=== PATIENT | male | born 1975 | race Caucasian/White ===

== ENCOUNTER 2019-11-27 04:39 | Emergency (ER) | payer SELFPAY ==
[~2019-11-27] VITALS: Ht 190.5 cm; Wt 90.9 kg
[2019-11-27 04:46] VITALS: Ht 190.5 cm; Wt 90.9 kg
[2019-11-27] MEDS ORDERED: LAMICTAL150 M1 PO (04:48)
[2019-11-27] MEDS ORDERED: SEROQUEL200 MG PO (04:48)
[2019-11-27] MEDS ORDERED: STERAPRED DS 1010 MG PO (05:07)
--- NOTE | 2019-11-27 05:40 | NUR ---
DR. BENNETT NOTIFIED AND REVIEWED PT'S BEHAVIOR AND ASSESSMENT RESULTS. PT IS A LOW RISK PER DR. BENNETT. DR. BENNETT STATED TO GIVE RESOURCES TO PT AT TIME OF DISCHARGE. NO FURTHER ORDERS AT THIS TIME. RESOURCES REVIEWED WITH PT AND HE VERBALIZED UNDERSTANDING.
[2019-11-27 06:01] VITALS: BP 117/79
== END 2019-11-27 06:03 | disposition home or self-care (01) ==
LOC: D.ER 04:39
DX: L25.9 Unspecified contact dermatitis, unspecified cause (principal)

== ENCOUNTER 2019-12-09 13:03 | Emergency (ER) | payer SELFPAY ==
[~2019-12-09] VITALS: Ht 190.5 cm; Wt 104.5 kg
[~2019-12-09 13:03] MED LIST: LAMICTAL150 M1 PO; SEROQUEL200 MG PO; STERAPRED DS 1010 MG PO
[2019-12-09 13:17] VITALS: BP 128/76; Ht 190.5 cm; Wt 104.5 kg
[2019-12-09] MEDS ORDERED: KEFLEX500 MG PO (15:08)
[2019-12-09] MEDS ORDERED: IBUPROFEN800 MG PO (15:08)
[2019-12-09] MEDS ORDERED: CYCLOBENZAPRINE10 MG PO (15:19)
[2019-12-09] MEDS ORDERED: ACETAMINOPHEN500 M1 PO (15:19)
== END 2019-12-09 15:40 | disposition home or self-care (01) ==
LOC: D.ER 13:03
DX: S81.011A Laceration without foreign body, right knee, initial encounter (principal); W45.8XXA Other foreign body or object entering through skin, initial encounter; Y93.9 Activity, unspecified; Y92.9 Unspecified place or not applicable; Z53.20 Procedure and treatment not carried out because of patient's decision for unspecified reasons

== ENCOUNTER 2019-12-18 17:44 | Emergency (ER) | payer SELFPAY ==
[~2019-12-18] VITALS: Ht 190.5 cm; Wt 100.0 kg
[~2019-12-18 17:44] MED LIST changes: +ACETAMINOPHEN500 M1 PO; +CYCLOBENZAPRINE10 MG PO; +IBUPROFEN800 MG PO; +KEFLEX500 MG PO
[2019-12-18 19:07] VITALS: Ht 190.5 cm; Wt 100.0 kg
[2019-12-18] MEDS ORDERED: KEFLEX500 MG PO (19:10)
[2019-12-18] MEDS ORDERED: CLINDAMYCIN HC300 MG PO (19:10)
[2019-12-18 19:22] VITALS: BP 139/76
[2019-12-19] MEDS ORDERED: VALISONE 0.1% C15 GM TOPICAL (21:51)
== END 2019-12-18 19:22 | disposition home or self-care (01) ==
LOC: D.ER 17:44
DX: Z48.00 Encounter for change or removal of nonsurgical wound dressing (principal); L03.90 Cellulitis, unspecified

== ENCOUNTER 2019-12-19 21:36 | Emergency (ER) | payer SELFPAY ==
[~2019-12-19] VITALS: Ht 190.5 cm; Wt 84.1 kg
[~2019-12-19 21:36] MED LIST changes: +CLINDAMYCIN HC300 MG PO
[2019-12-19 21:43] VITALS: Ht 190.5 cm; Wt 84.1 kg
[2019-12-19] MEDS ORDERED: VALISONE 0.1% C15 GM TOPICAL (21:51)
[2019-12-19 22:05] VITALS: BP 132/87
== END 2019-12-19 22:05 | disposition home or self-care (01) ==
LOC: D.ER 21:36
DX: L25.9 Unspecified contact dermatitis, unspecified cause (principal)

== ENCOUNTER 2019-12-28 07:15 | Emergency (ER) | payer MEDICAID ==
[~2019-12-28] VITALS: Ht 190.5 cm; Wt 104.5 kg
[~2019-12-28 07:15] MED LIST changes: +VALISONE 0.1% C15 GM TOPICAL
[2019-12-28 07:18] VITALS: BP 132/88; Ht 190.5 cm; Wt 104.5 kg
== END 2019-12-28 07:38 | disposition home or self-care (01) ==
LOC: D.ER 07:15
DX: Z48.02 Encounter for removal of sutures (principal)

== ENCOUNTER 2020-01-19 02:13 | Emergency (ER) | payer MEDICAID ==
[~2020-01-19] VITALS: Ht 190.5 cm; Wt 104.5 kg
[2020-01-19 02:17] VITALS: Ht 190.5 cm; Wt 104.5 kg
[2020-01-19] MEDS ORDERED: STERAPRED 5MG 125 MG PO (02:31)
--- NOTE | 2020-01-19 03:04 | NUR ---
DR BENNETT NOTIFIED AND REVIEWED PT BEHAVIOR AND ASSESSMENT RESULTS. PT IS A LOW RISK PER DR BENNETT. DR BENNETT STATED TO GIVE RESOURCES TO PT AT TIME OF DISCHARGE. NO FURTHER ORDERS AT THIS TIME. RESOURCES REVIEWED WITH PT AND HE VERBALIZED UNDERSTANDING.
[2020-01-19 03:18] VITALS: BP 142/70
== END 2020-01-19 03:18 | disposition home or self-care (01) ==
LOC: D.ER 02:13
DX: L23.7 Allergic contact dermatitis due to plants, except food (principal)

== ENCOUNTER 2020-01-25 19:30 | Emergency (ER) | payer MEDICAID ==
[~2020-01-25] VITALS: Ht 190.5 cm; Wt 104.5 kg
[~2020-01-25 19:30] MED LIST changes: +STERAPRED 5MG 125 MG PO
[2020-01-25 19:39] VITALS: Ht 190.5 cm; Wt 104.5 kg
[2020-01-25] MEDS ORDERED: HYDROXYZINE HCL50 MG PO (19:43)
[2020-01-25] MEDS ORDERED: VOLTAREN75 MG PO (20:22)
[2020-01-25] MEDS ORDERED: METHOCARBAMOL500 MG PO (20:22)
--- NOTE | 2020-01-25 20:54 | NUR ---
PATIENT IN ER FOR AN INJURED SHOULDER, HE IS NOT SUICIDIAL. HE HAS TRIED YEARS AGO. HE GIVES REASONS FOR LIVING. HE ATTITUDE AND AFFECT ARE GREAT. VERY POSTIVE THINKING. 1800 NUMBER GIVEN FOR FUTURE REFERENCE
[2020-01-25 21:29] VITALS: BP 142/80
== END 2020-01-25 21:28 | disposition home or self-care (01) ==
LOC: D.ER 19:30
DX: M25.512 Pain in left shoulder (principal); M79.10 Myalgia, unspecified site; W11.XXXA Fall on and from ladder, initial encounter; Y93.9 Activity, unspecified; Y92.9 Unspecified place or not applicable

== ENCOUNTER 2020-02-17 12:45 | Emergency (ER) | payer OTHER ==
[~2020-02-17] VITALS: Ht 190.5 cm; Wt 109.1 kg
[~2020-02-17 12:45] MED LIST changes: +HYDROXYZINE HCL50 MG PO; +METHOCARBAMOL500 MG PO; +VOLTAREN75 MG PO
[2020-02-17 14:16] VITALS: Ht 190.5 cm; Wt 109.1 kg
[2020-02-17] MEDS ORDERED: BACLOFEN20 M1 PO (15:03)
[2020-02-17] MEDS ORDERED: VOLTAREN75 MG PO (15:03)
[2020-02-17 16:04] VITALS: BP 121/71
== END 2020-02-17 16:05 | disposition home or self-care (01) ==
LOC: D.ER 12:45
DX: M25.512 Pain in left shoulder (principal); M79.602 Pain in left arm; G89.29 Other chronic pain

== ENCOUNTER 2020-02-19 14:45 | Emergency (ER) | payer OTHER ==
[~2020-02-19] VITALS: Ht 190.5 cm; Wt 104.5 kg
[~2020-02-19 14:45] MED LIST changes: +BACLOFEN20 M1 PO
[2020-02-19 14:55] VITALS: Ht 190.5 cm; Wt 104.5 kg
[2020-02-19 15:46] LABS: BASOPHILS 0.4 % (0-2); EOSINOPHILS 1.1 % (0-7); HEMATOCRIT 40.6 % (42.0-54.0); HEMOGLOBIN 13.7 g/dL (13.5-17.5); IMMATURE GRANULOCYTES 0.5 % (0-5); MCH 31.4 pg (26.0-34.0); MCHC 33.7 g/dL (31.0-37.0); MCV 93.1 fL (80.0-100.0); MEAN PLATELET VOLUME 10.7 fL (7.4-10.4); MONOCYTES 7.9 % (2-11); NEUTROPHILS 71.1 % (40-80); PLATELET COUNT 203 10x3/uL (130-400); RBC 4.36 10x6/uL (4.20-6.10); RDW 13.4 % (11.5-14.5); WBC 5.6 10x3/uL (4.8-10.8)
[2020-02-19 15:54] LABS: CALC OSMOLALITY 286 mosm/kg (275-300); CARBON DIOXIDE 27.9 mmol/L (21.0-32.0); CHLORIDE - SERUM 109 mmol/L (98-107); CREATININE - SERUM 1.1 mg/dL (0.6-1.3); GLUCOSE 130 mg/dL (74-106); POTASSIUM - SERUM 4.1 mmol/L (3.5-5.1); SODIUM 142 mmol/L (136-145); UREA NITROGEN 17 mg/dL (7-18); eGFR NON AFRICAN AMERICAN 76 mL/min (90-120)
[2020-02-19 16:10] LABS: ALBUMIN 3.8 g/dL (3.4-5.0); ALKALINE PHOSPHATASE 74 U/L (30-120); ALT (SGPT) 58 U/L (10-68); BILIRUBIN - TOTAL 0.48 mg/dL (0.2-1.3); CKMB 1.9 U/L (0.0-3.6); CREATINE KINASE 168 UL (21-232); TROPONIN-I < 0.017 ng/mL (0.000-0.060)
[2020-02-19 17:02] LABS: APTT 27.8 SECONDS (22.8-39.4); INR 1.01 (0.85-1.17); PROTIME 13.3 SECONDS (11.6-15.0)
[2020-02-19] MEDS ORDERED: NAPROSYN500 MG PO (17:49)
[2020-02-19] MEDS ORDERED: MECLIZINE HCL25 MG PO (17:49)
[2020-02-19 18:35] VITALS: BP 157/79
== END 2020-02-19 18:36 | disposition home or self-care (01) ==
LOC: D.ER 14:45
PROVIDERS: Emergency Medicine
DX: R51 Headache (principal); R42 Dizziness and giddiness; R53.1 Weakness; R07.89 Other chest pain

== ENCOUNTER 2020-04-02 08:42 | Emergency (ER) | payer OTHER ==
[~2020-04-02] VITALS: Ht 190.5 cm; Wt 106.8 kg
[~2020-04-02 08:42] MED LIST changes: +MECLIZINE HCL25 MG PO; +NAPROSYN500 MG PO
[2020-04-02 08:46] VITALS: Ht 190.5 cm; Wt 106.8 kg
[2020-04-02] MEDS ORDERED: CYCLOBENZAPRINE10 MG PO (09:46)
[2020-04-02] MEDS ORDERED: STERAPRED DS 1010 MG PO (09:46)
[2020-04-02 09:51] VITALS: BP 133/84
== END 2020-04-02 09:51 | disposition home or self-care (01) ==
LOC: D.ER 08:42
DX: M54.42 Lumbago with sciatica, left side (principal); S39.012A Strain of muscle, fascia and tendon of lower back, initial encounter; X50.1XXA Overexertion from prolonged static or awkward postures, initial encounter; Y93.9 Activity, unspecified; Y92.9 Unspecified place or not applicable

== ENCOUNTER 2020-05-03 07:44 | Emergency (ER) | payer OTHER ==
[~2020-05-03] VITALS: Ht 190.5 cm; Wt 104.5 kg
[2020-05-03 07:57] VITALS: Ht 190.5 cm; Wt 104.5 kg
[2020-05-03] MEDS ORDERED: BACTRIM DS TAB1 EAC1 PO (09:49)
[2020-05-03] MEDS ORDERED: NAPROSYN500 MG PO (09:49)
[2020-05-03] MEDS ORDERED: CYCLOBENZAPRINE10 MG PO (09:49)
[2020-05-03 10:03] VITALS: BP 149/94
== END 2020-05-03 10:03 | disposition home or self-care (01) ==
LOC: D.ER 07:44
DX: M54.30 Sciatica, unspecified side (principal); L03.115 Cellulitis of right lower limb